=== PATIENT | female | born 1990 | race Caucasian/White ===

== ENCOUNTER 2017-10-11 11:37 | Emergency (ER) | payer OTHER ==
[2017-10-11 12:27] VITALS: BP 125/70; PULSE 95; RESP 14; TEMP 98.7; O2SAT 99
[2017-10-11 14:24] LABS: BASOPHIL # 0.1 TH/MM3 (0-0.2); BASOPHIL % 0.9 % (0.0-2.0); EOSINOPHIL # 0.1 TH/MM3 (0-0.4); EOSINOPHIL % 0.6 % (0.0-4.0); HEMATOCRIT 39.4 % (35.0-46.0); HEMOGLOBIN 13.2 GM/DL (11.6-15.3); LYMPH % 32.3 % (9.0-44.0); LYMPHOCYTE # 3.1 TH/MM3 (1.0-4.8); MEAN CELL VOLUME 79.6 FL (80.0-100.0); MEAN CORPUSCULAR HEMOGLOBIN 26.7 PG (27.0-34.0); MEAN CORPUSCULAR HGB CONC 33.6 % (32.0-36.0); MEAN PLATELET VOLUME 8.5 FL (7.0-11.0); MONO % 4.5 % (0.0-8.0); MONOCYTE # 0.4 TH/MM3 (0-0.9); NEUT % 61.7 % (16.0-70.0); PLATELET COUNT 373 TH/MM3 (150-450); RED BLOOD COUNT 4.95 MIL/MM3 (4.00-5.30); RED CELL DISTRIBUTION WIDTH 15.6 % (11.6-17.2); WHITE BLOOD COUNT 9.7 TH/MM3 (4.0-11.0)
[2017-10-11 14:28] LABS: BILIRUBIN, URINE NEG (NEG); BLOOD, URINE NEG (NEG); GLUCOSE,URINE NEG (NEG); KETONE, URINE NEG (NEG); NITRITE,URINE NEG (NEG); PH, URINE 5.5 (5.0-8.5); SQUAMOUS EPITHELIAL CELL URINE 2 /hpf (0-5); URINE COLOR LIGHT-YELLOW (YELLW/STRAW); URINE LEUKOCYTE ESTERASE NEG (NEG)
[2017-10-11 14:50] LABS: ALBUMIN 4.1 GM/DL (3.4-5.0); AST (GOT) 14 U/L (15-37); BLOOD UREA NITROGEN 9 MG/DL (7-18); CALCIUM 9.1 MG/DL (8.5-10.1); CHLORIDE 104 MEQ/L (98-107); CREATININE 0.77 MG/DL (0.50-1.00); GLOMERULAR FILTRATION RATE 91 ML/MIN (>89); GLUCOSE,RANDOM 82 MG/DL (74-106); SODIUM (NA) 140 MEQ/L (136-145)
[2017-10-11 15:08] LABS: ALKALINE PHOSPHATASE 62 U/L (45-117); ALT (GPT) 18 U/L (10-53); TOTAL BILIRUBIN ADULT 0.6 MG/DL (0.2-1.0); TOTAL PROTEIN 8.2 GM/DL (6.4-8.2)
--- NOTE | 2017-10-11 15:22 | PD ---
HPI Chief Complaint: Related Problem Time Seen by Provider: 14:42 Travel History International Travel<30 days: No Contact w/Intl Traveler<30days: No Traveled to known affect area: No History of Present Illness HPI Patient is a 27-year-old female presents emergency department for evaluation of vaginal bleeding and lower abdominal cramping. Patient states she is does not know how far along. She denies any weakness denies any chest pain shortness of breath. She has noticed that the blood turned into brown vaginal discharge today. States the pain that was only mild but she is concerned that she might be losing the . Symptoms mild, progression as above, context as above, associated signs and symptoms as above per [facility] Past Medical History ?: LMP: 08/31/2017 Social History Alcohol Use: Yes Tobacco Use: No Substance Use: No Allergies-Medications (Allergen,Severity, Reaction): Coded Allergies: penicillin V (Verified Allergy, Mild, 10/13/17) Reported Meds & Prescriptions Reported Meds & Active Scripts Active ( Vit-Ferrous Fumarate) 27 Mg Iron-1 Mg Tab 1 Tab PO DAILY Pnv 29-1 Tablet ( Vit,Calc76/Iron/Folic) 29 Mg Iron-1 Mg Tablet 1 Tab PO DAILY 30 Days Review of Systems Except as stated in HPI: all other systems reviewed are Neg Physical Exam Narrative GENERAL: Well-developed, well-nourished, no obvious distress per SKIN: Focused skin assessment warm/dry. HEAD: Atraumatic. Normocephalic. EYES: Pupils equal and round. No scleral icterus. No injection or drainage. ENT: No nasal bleeding or discharge. Mucous membranes pink and moist. NECK: Trachea midline. No JVD. CARDIOVASCULAR: Regular rate and rhythm. No murmur appreciated. RESPIRATORY: No accessory muscle use. Clear to auscultation. Breath sounds equal bilaterally. GASTROINTESTINAL: Abdomen soft, non-tender, nondistended. Hepatic and splenic margins not palpable. GENITOURINARY: Exam performed with female nurse agriculture worker present all times, there is scant brown discharge within the vaginal vault consistent with old blood, no cervical motion tenderness no bimanual tenderness. MUSCULOSKELETAL: No obvious deformities. No clubbing. No cyanosis. No edema. NEUROLOGICAL: Awake and alert. No obvious cranial nerve deficits. Motor grossly within normal limits. Normal speech. PSYCHIATRIC: Appropriate mood and affect; insight and judgment normal. Data Data Last Documented VS Vital Signs Date Time Temp Pulse Resp B/P (MAP) Pulse Ox O2 Delivery O2 Flow Rate FiO2 10/11/17 12:27 98.7 95 14 125/70 (88) 99 Orders Orders Complete Blood Count With Diff (10/11/17 12:29) Comprehensive Metabolic Panel (10/11/17 12:29) Beta Hcg (Quant/Titer) (10/11/17 12:29) Urinalysis - C+S If Indicated (10/11/17 12:29) Complete Rh (10/11/17 12:29) Us Pelvis (Ques Pr/Ect)W Trans (10/11/17 ) Ed Urine Pregnancytest Poc (10/11/17 12:29) Ed Poc Ultrasound (10/11/17 ) Wet Prep Profile (10/11/17 15:21) Gc And Chlamydia Pcr (10/11/17 15:21) Ed Discharge Order (10/11/17 16:11) Labs Laboratory Tests Test 10/11/17 13:35 10/11/17 15:30 White Blood Count 9.7 TH/MM3 Red Blood Count 4.95 MIL/MM3 Hemoglobin 13.2 GM/DL Hematocrit 39.4 % Mean Corpuscular Volume 79.6 FL Mean Corpuscular Hemoglobin 26.7 PG Mean Corpuscular Hemoglobin Concent 33.6 % Red Cell Distribution Width 15.6 % Platelet Count 373 TH/MM3 Mean Platelet Volume 8.5 FL Neutrophils (%) (Auto) 61.7 % Lymphocytes (%) (Auto) 32.3 % Monocytes (%) (Auto) 4.5 % Eosinophils (%) (Auto) 0.6 % Basophils (%) (Auto) 0.9 % Neutrophils # (Auto) 6.0 TH/MM3 Lymphocytes # (Auto) 3.1 TH/MM3 Monocytes # (Auto) 0.4 TH/MM3 Eosinophils # (Auto) 0.1 TH/MM3 Basophils # (Auto) 0.1 TH/MM3 CBC Comment DIFF FINAL Differential Comment Urine Color LIGHT-YELLOW Urine Turbidity CLEAR Urine pH 5.5 Urine Specific [place] 1.007 Urine Protein NEG mg/dL Urine Glucose (UA) NEG mg/dL Urine Ketones NEG mg/dL Urine Occult Blood NEG Urine Nitrite NEG Urine Bilirubin NEG Urine Urobilinogen LESS THAN 2.0 MG/DL Urine Leukocyte Esterase NEG Urine RBC LESS THAN 1 /hpf Urine Squamous Epithelial Cells 2 /hpf Microscopic Urinalysis Comment CULT NOT INDICATED Blood Urea Nitrogen 9 MG/DL Creatinine 0.77 MG/DL Random Glucose 82 MG/DL Total Protein 8.2 GM/DL Albumin 4.1 GM/DL Calcium Level 9.1 MG/DL Alkaline Phosphatase 62 U/L Aspartate Amino Transf (AST/SGOT) 14 U/L Alanine Aminotransferase (ALT/SGPT) 18 U/L Total Bilirubin 0.6 MG/DL Sodium Level 140 MEQ/L Potassium Level 3.7 MEQ/L Chloride Level 104 MEQ/L Carbon Dioxide Level 26.0 MEQ/L Anion Gap 10 MEQ/L Estimat Glomerular Filtration Rate 91 ML/MIN Human Chorionic Gonadotropin, Quant 32950 MIU/ML Clue Cells (Wet Prep) NONE SEEN Vaginal Trichomonas (Wet Prep) NONE SEEN Vaginal Yeast (Wet Prep) NONE SEEN Chlamydia trachomatis DNA (PCR) NOT DETECTED Neisseria gonorrhoeae DNA (PCR) NOT DETECTED MDM Medical Decision Making Medical Screen Exam Complete: Yes Emergency Medical Condition: Yes Differential Diagnosis Threatened miscarriage, Rh mismatch, STD seems unlikely, BV, CV peer Narrative Course Patient was room to the emergency department,Her hCG is on the area of 15,000, bedside ultrasound performed by undersigned did show what appeared to be subchorionic hemorrhage and a gestational sac but no yolk sac was observed, and official ultrasound was ordered: Last 24 hours Impressions Pelvis Ultrasound 10/11/17 0000 Signed Impressions: Service Date/Time: Wednesday, October 11, 2017 15:34 - CONCLUSION: 1. 1.2 cm gestational sac. 2. Yolk sac but no identifiable pole. With the quantitative beta hCG approximately 14,000, spectrum of findings are concerning for blighted ovum. 3. Trace free fluid. John Hernandez MD The results were discussed with the patient, discussed expectant management need for follow-up with her DIE DRAWING CHECKER and discussed any continued bleeding should be reason to return to the emergency department. Discussed with her that she also needs to return if she has any fevers. Discussed follow-up in 48 hours for repeat hCG and possibly repeat ultrasound. She verbalized understanding and agreement. Procedures Procedure Narrative BEDSIDE ULTRASOUND: Transabdominal views obtained of the uterus which does show what appears to be a subchorionic hemorrhage in the gestational sac without any evident identifiable yolk sac. No pelvic free fluid is identified. This is an abnormal finding. An official ultrasound has been ordered. Diagnosis Primary Impression: Threatened miscarriage Scripts Vit,Calc76/Iron/Folic (Pnv 29-1 Tablet) 29 Mg Iron-1 Mg Tablet 1 TAB PO DAILY for 30 Days, 9 Refills Prov: Tj Glasgow MD 10/11/17 Disposition: 01 DISCHARGE HOME Condition: Stable Tj Glasgow MD Oct 11, 2017 15:22
[2017-10-11] MEDS ORDERED: PREN1TAB45 PO (16:11)
--- NOTE | 2017-10-11 16:46 | RADRPT ---
EXAM DATE/TIME: 10/11/2017 15:34 [place] COMPARISON: No previous studies available for comparison. INDICATIONS : Bleeding. LAB(S): Beta-hC,851 MEDICAL HISTORY : . SURGICAL HISTORY : None. ENCOUNTER: Initial ACUITY: 2 days PAIN SCORE: 0/10 LOCATION: Bilateral pelvis MEASUREMENTS: UTERUS: 10.4 x 7.9 x 4.8 cm ENDOMETRIAL STRIPE: 20 mm RIGHT OVARY: 3.9 x 3.7 x 2.5 cm LEFT OVARY: 4.0 x 3.3 x 2.0 cm FREE FLUID: Yes Trace amount. CROWN RUMP LENGTH: Not visualized. = WKS DAYS FHR: BPM FINDINGS: UTERUS: The myometrium has homogeneous echotexture without mass. Gestational sac measures 1.2 cm correspondi ng to a gestational age of 5 weeks and 2 days. A small yolk sac is identified but no definitive pole. RIGHT OVARY: Dominant 2.9 x 2.5 x 1.7 cm cyst. LEFT OVARY: Complex, 2.0 x 2.0 x 1.4 cm probable corpus luteum MISCELLANEOUS: Trace free fluid. CONCLUSION: 1. 1.2 cm gestational sac. 2. Yolk sac but no identifiable pole. With the quantitative beta hCG approximately 14,000, spec trum of findings are concerning for blighted ovum. 3. Trace free fluid. John Hernandez MD on October 11, 2017 at 16:39 Board Certified Radiologist. This report was verified electronically.
== END 2017-10-11 16:25 | disposition home or self-care (01) ==
LOC: NED 11:37 → NEPD 16:25
DX: O20.0 Threatened abortion (principal); Z3A.00 Weeks of gestation of pregnancy not specified
CPT/HCPCS: 76700; 76817; 80053; 81001; 84702; 84703; 85025; 86901; 87210; 87491; 87591

== ENCOUNTER 2017-10-13 07:52 | Emergency (ER) | payer OTHER ==
[~2017-10-13] VITALS: Ht 182.9 cm; Wt 65.0 kg
[~2017-10-13 07:52] MED LIST: PREN1TAB45 PO
[2017-10-13 07:54] VITALS: BP 139/65; PULSE 107; RESP 16; TEMP 98.4; O2SAT 100
--- NOTE | 2017-10-13 08:34 | PD ---
HPI Chief Complaint: Medical Clearance Time Seen by Provider: 08:11 Travel History International Travel<30 days: No Contact w/Intl Traveler<30days: No Traveled to known affect area: No History of Present Illness HPI 27-year-old female previously seen on October 11 and diagnosed with threatened miscarriage. Patient states mild cramping and spotting continues. She denies any other significant complaints. HCG on the was 13,851. Patient is allergic to penicillin. Patient is not established with local OB or primary care yet. She is in that process. [facility] Past Medical History Medical History: Denies Significant Hx Diminished Hearing: No Tetanus Vaccination: Unknown Influenza Vaccination: No ?: LMP: 08/31/17 : 3 Para: 1 Past Surgical History Other Surgery: Yes (breast augmentation) Social History Alcohol Use: No Tobacco Use: No Substance Use: No Allergies-Medications (Allergen,Severity, Reaction): Coded Allergies: penicillin V (Verified Allergy, Mild, 10/13/17) Reported Meds & Prescriptions Reported Meds & Active Scripts Active Pnv 29-1 Tablet ( Vit,Calc76/Iron/Folic) 29 Mg Iron-1 Mg Tablet 1 Tab PO DAILY 30 Days Review of Systems Except as stated in HPI: all other systems reviewed are Neg General / Constitutional: No: Fever Eyes: No: Visual changes HENT: No: Headaches Cardiovascular: No: Chest Pain or Discomfort Respiratory: No: Shortness of Breath Gastrointestinal: No: Abdominal Pain Genitourinary: Positive: Pelvic Pain (Intermittent cramping), Vaginal Bleeding (Spotting), No: Dysuria Musculoskeletal: No: Pain Skin: No Rash Neurologic: No: Weakness Psychiatric: No: Depression Endocrine: No: Polydipsia Hematologic/Lymphatic: No: Easy Bruising Physical Exam Narrative GENERAL: Patient appears in no acute distress SKIN: Warm and dry. Normal color. Normal turgor. HEAD: Atraumatic. Normocephalic. EYES: Pupils equal and round. No scleral icterus. No injection or drainage. ENT: No nasal bleeding or discharge. Mucous membranes pink and moist. Pharynx is clear. Airways patent. NECK: Trachea midline. Supple and nontender. CARDIOVASCULAR: Regular rate and rhythm. RESPIRATORY: No accessory muscle use. Clear to auscultation. Breath sounds equal bilaterally. GASTROINTESTINAL: Abdomen soft, non-tender, nondistended. Hepatic and splenic margins not palpable. MUSCULOSKELETAL: Extremities without clubbing, cyanosis, or edema. No obvious deformities. NEUROLOGICAL: Awake and alert. No obvious cranial nerve deficits. Motor grossly within normal limits. Five out of 5 muscle strength in the arms and legs. Normal speech. PSYCHIATRIC: Appropriate mood and affect; insight and judgment normal. Data Data Last Documented VS Vital Signs Date Time Temp Pulse Resp B/P (MAP) Pulse Ox O2 Delivery O2 Flow Rate FiO2 10/13/17 08:51 16 10/13/17 07:54 98.4 107 139/65 (89) 100 Orders Orders Beta Hcg (Quant/Titer) (10/13/17 08:13) Labs Laboratory Tests Test 10/13/17 08:35 Human Chorionic Gonadotropin, Quant 11396 MIU/ML MDM Medical Decision Making Medical Screen Exam Complete: Yes Emergency Medical Condition: Yes Medical Record Reviewed: Yes Differential Diagnosis Early . Vaginal spotting. Abdominal cramping. Threatened miscarriage versus early . Narrative Course Patient is medically stable time exam. Repeat serum hCG is ordered. Repeat hCG is 19,013. Patient will be started on vitamins. [facility]. Patient can return as symptoms warrant. Diagnosis Primary Impression: Spotting affecting in first trimester Referrals: [facility] call for appointment Patient Instructions: Abdominal Pain in (ED), General Instructions Additional Instructions: Repeat hCG is 19,013. Patient will be started on vitamins. Patient is to [facility] with [facility]. Patient can return as symptoms warrant. Med/Other Pt SpecificInfo: Prescription(s) given Scripts Vit-Ferrous Fumarate () 27 Mg Iron-1 Mg Tab 1 TAB PO DAILY for Nutritional Supplement, #30 TAB 0 Refills Prov: Bobo Alcazar MD 10/13/17 Disposition: 01 DISCHARGE HOME Condition: Stable Hermes Smalls Oct 13, 2017 08:34
[2017-10-13] MEDS ORDERED: TRICTAB PO (09:50)
[2017-10-13 10:18] VITALS: BP 133/74
== END 2017-10-13 10:19 | disposition home or self-care (01) ==
LOC: NEPD 07:52
DX: O26.851 Spotting complicating pregnancy, first trimester (principal); Z3A.00 Weeks of gestation of pregnancy not specified
CPT/HCPCS: 84702; 99283

== ENCOUNTER → 2017-11-25 | Outpatient (CLI) | payer OTHER ==
[~2017-11-25] MED LIST changes: +TRICTAB PO
[2017-11-25 13:09] LABS: AUTOMATED NEUTROPHIL # 5.6 TH/MM3 (1.8-7.7); BASOPHIL # 0.1 TH/MM3 (0-0.2); BASOPHIL % 0.7 % (0.0-2.0); EOSINOPHIL # 0.1 TH/MM3 (0-0.4); EOSINOPHIL % 1.5 % (0.0-4.0); HEMATOCRIT 39.9 % (35.0-46.0); HEMOGLOBIN 13.6 GM/DL (11.6-15.3); LYMPH % 23.6 % (9.0-44.0); LYMPHOCYTE # 1.9 TH/MM3 (1.0-4.8); MEAN CELL VOLUME 79.8 FL (80.0-100.0); MEAN CORPUSCULAR HEMOGLOBIN 27.3 PG (27.0-34.0); MEAN CORPUSCULAR HGB CONC 34.2 % (32.0-36.0); MEAN PLATELET VOLUME 9.2 FL (7.0-11.0); MONO % 5.8 % (0.0-8.0); MONOCYTE # 0.5 TH/MM3 (0-0.9); NEUT % 68.4 % (16.0-70.0); PLATELET COUNT 286 TH/MM3 (150-450); RED CELL DISTRIBUTION WIDTH 14.7 % (11.6-17.2); WHITE BLOOD COUNT 8.1 TH/MM3 (4.0-11.0)
== END ==
LOC: ELAB 08:20
PROVIDERS: ATTEND Obstetrics & Gynecology
DX: O99.281 Endocrine, nutritional and metabolic diseases complicating pregnancy, first trimester (principal); E03.9 Hypothyroidism, unspecified; O98.111 Syphilis complicating pregnancy, first trimester; Z3A.00 Weeks of gestation of pregnancy not specified
CPT/HCPCS: 36415; 84443; 85025; 86592; 86762; 86787; 86850; 86900; 86901; 87340

== ENCOUNTER → 2017-12-07 | Outpatient (CLI) | payer OTHER | LOC: HPND 09:41 | PROVIDERS: ATTEND Obstetrics & Gynecology | DX: O28.5 Abnormal chromosomal and genetic finding on antenatal screening of mother (principal); O35.1XX0 Maternal care for (suspected) chromosomal abnormality in fetus, not applicable or unspecified; Z36.82 Encounter for antenatal screening for nuchal translucency | CPT/HCPCS: 36415; 76813 ==

== ENCOUNTER → 2018-01-04 | Outpatient (CLI) | payer OTHER | LOC: HPND 07:33 | PROVIDERS: ATTEND Obstetrics & Gynecology | DX: O28.5 Abnormal chromosomal and genetic finding on antenatal screening of mother (principal) | CPT/HCPCS: 76811 ==